=== PATIENT | male | born 1950 | race Caucasian/White ===

== ENCOUNTER 2023-06-03 10:29 | Inpatient (IN) | payer MEDICARE ==
[~2023-06-03] VITALS: Ht 175.3 cm; Wt 78.0 kg
[~2023-06-03 10:29] MED LIST: AMLO25TA PO; FINA-48 PO; FLOM0.4C39 PO; PRED5PAK PO; ROSU10TA6 PO; VENTAER INH
[2023-06-03] MEDS ORDERED: LR 1,000 ML IV SCH (11:20)
[2023-06-03] MEDS ORDERED: ONDANSETRON 4MG 2ML VIAL IV PRN (12:45)
[2023-06-03] MEDS: ceFAZolin SOD 2 GM in IV 1 EA IV ONE (13:00)
[2023-06-03] MEDS ORDERED: LIDOCAINE 2% 100MG/5ML SDV (FOR ANES.) As Ordered ONE (13:03)
[2023-06-03] MEDS ORDERED: HYDROmorphone HCL 2MG/ML 1ML VIAL As Ordered ONE (13:03)
[2023-06-03] MEDS ORDERED: dexmedeTOMIDine (4MCG/ML)200MCG/50ML BTL (PRECEDEX) As Ordered ONE (13:03)
[2023-06-03] MEDS ORDERED: SUGAMMADEX SODIUM 500 MG/5 ML VIAL (BRIDION) As Ordered ONE (13:03)
[2023-06-03] MEDS ORDERED: ROCURONIUM BROMIDE 50MG/5ML VIAL As Ordered ONE (13:03)
[2023-06-03] MEDS ORDERED: ONDANSETRON 4MG 2ML VIAL As Ordered ONE (13:03)
[2023-06-03] MEDS ORDERED: MIDAZOLAM INJ 2MG/2ML VIAL As Ordered ONE (13:03)
[2023-06-03] MEDS ORDERED: fentaNYL 250 MCG/5 ML INJECTION As Ordered ONE (13:03)
[2023-06-03] MEDS ORDERED: ACETAMINOPHEN 1000MG 100ML IV BAG As Ordered ONE (13:03)
[2023-06-03] MEDS ORDERED: propofoL 200 MG/20 ML VIAL As Ordered ONE (13:03)
[2023-06-03] MEDS ORDERED: METOCLOPRAMIDE INJ 10MG/2ML VIAL As Ordered ONE (13:03)
[2023-06-03] MEDS ORDERED: ePHEDrine SULFATE 25 MG/5 ML(5MG/ML) SYRINGE As Ordered ONE (13:10)
[2023-06-03] MEDS ORDERED: ALBUTEROL 6.7GM INHALER **FOR ANES. CART/OMNICELL ONLY As Ordered ONE (13:18)
[2023-06-03] MEDS: FILTER 1.2 MICRON (ADULT TPN/MANNITOL/REMICADE) XX ONE (13:56)
[2023-06-03] MEDS: MANNITOL 25% 12.5GM 50ML VIAL As Ordered ONE (13:56)
[2023-06-03] MEDS: LIDOCAINE 1% SDV 30ML VIAL As Ordered ONE (14:54)
[2023-06-03] MEDS ORDERED: DESFLURANE 240 ML INHALANT As Ordered ONE (15:13)
[2023-06-03] MEDS ORDERED: fentaNYL 100 MCG/2 ML INJECTION IV PRN (15:40)
[2023-06-03] MEDS: LR 1,000 ML IV SCH (15:40)
[2023-06-03] MEDS ORDERED: ALBUTEROL 90 MCG/ACT 8GM HFA INHALER INH PRN (15:55)
[2023-06-03] MEDS: oxyCODONE 5MG TAB PO PRN (16:18)
[2023-06-03] MEDS: HYDROMORPHONE HCL 0.5 MG/ 0.5 ML SYRINGE IV PRN (16:19)
[2023-06-03] MEDS: ONDANSETRON 4MG 2ML VIAL IV PRN (16:19)
[2023-06-03 16:39] LABS: HEMATOCRIT 44.3 % (42.0-52.0); HEMOGLOBIN 14.2 g/dl (13.5-17.5); MEAN CORPUSCULAR HEMOGLOBIN 29.2 pg (27.0-33.0); MEAN CORPUSCULAR HGB CONC 32.1 g/dl (32.0-36.5); MEAN CORPUSCULAR VOLUME 91.2 fl (80.0-96.0); PLATELET COUNT, AUTOMATED 234 10^3/uL (150-450); RED BLOOD COUNT 4.86 10^6/uL (4.30-6.10); WHITE BLOOD COUNT 10.6 10^3/uL (4.0-10.0)
[2023-06-03 17:08] LABS: BLOOD UREA NITROGEN 20 MG/DL (9-23); CALCIUM LEVEL 7.8 MG/DL (8.3-10.6); CARBON DIOXIDE LEVEL 26 MMOL/L (20-31); CHLORIDE LEVEL 106 MMOL/L (98-107); CREATININE FOR GFR 0.95 MG/DL (0.70-1.30); GLOMERULAR FILTRATION RATE > 60.0 (>42); GLUCOSE, FASTING 169 MG/DL (74-106); POTASSIUM SERUM 4.4 MMOL/L (3.5-5.1); SODIUM LEVEL 137 MMOL/L (136-145)
[2023-06-03 17:30] VITALS: BP 113/71; TEMP 97.1; O2SAT 95
[2023-06-03 18:00] VITALS: BP 110/66; TEMP 97.3; O2SAT 96
[2023-06-03] MEDS: NS 1,000 ML IV SCH (18:22)
[2023-06-03] MEDS: ACETAMINOPHEN TAB 650MG DOSE (2X325MG) PO PRN (18:46)
[2023-06-03] MEDS: DOCUSATE SODIUM 100MG CAPSULE PO SCH (20:13)
[2023-06-03] MEDS: ceFAZolin SOD 1 GM in D5W MINI-BAG PLUS 50 ML IV SCH (20:13)
[2023-06-03 20:36] VITALS: BP 124/71; TEMP 97.9; O2SAT 95
[2023-06-04 01:33] VITALS: BP 118/70; TEMP 97.2; O2SAT 97
[2023-06-04] MEDS: PERCOCET 5MG/325MG TAB PO PRN ×2 (05:33→11:16)
[2023-06-04 06:05] VITALS: BP 119/71; TEMP 97.9; O2SAT 97
[2023-06-04 07:14] LABS: HEMATOCRIT 40.2 % (42.0-52.0); HEMOGLOBIN 13.3 g/dl (13.5-17.5); MEAN CORPUSCULAR HEMOGLOBIN 29.5 pg (27.0-33.0); MEAN CORPUSCULAR HGB CONC 33.1 g/dl (32.0-36.5); MEAN CORPUSCULAR VOLUME 89.1 fl (80.0-96.0); PLATELET COUNT, AUTOMATED 222 10^3/uL (150-450); RED BLOOD COUNT 4.51 10^6/uL (4.30-6.10); WHITE BLOOD COUNT 8.7 10^3/uL (4.0-10.0)
[2023-06-04 07:34] LABS: BLOOD UREA NITROGEN 16 MG/DL (9-23); CALCIUM LEVEL 7.9 MG/DL (8.3-10.6); CARBON DIOXIDE LEVEL 27 MMOL/L (20-31); CHLORIDE LEVEL 107 MMOL/L (98-107); CREATININE FOR GFR 0.74 MG/DL (0.70-1.30); GLOMERULAR FILTRATION RATE > 60.0 (>42); GLUCOSE, FASTING 154 MG/DL (74-106); POTASSIUM SERUM 4.4 MMOL/L (3.5-5.1); SODIUM LEVEL 138 MMOL/L (136-145)
[2023-06-04] MEDS: TAMSULOSIN 0.4 MG CAP PO SCH (08:11)
[2023-06-04] MEDS: ROSUVASTATIN 10 MG TAB (CRESTOR) PO SCH (08:11)
[2023-06-04] MEDS: FINASTERIDE 5MG TAB PO SCH (08:11)
[2023-06-04 14:00] VITALS: BP 118/61; TEMP 98.2; O2SAT 91
[2023-06-04] MEDS ORDERED: COLA100C5 PO (16:09)
[2023-06-04] MEDS ORDERED: PERCOCET PO (16:09)
[2023-06-04 20:16] VITALS: BP 124/65; TEMP 98.1; O2SAT 91
[2023-06-05 06:11] VITALS: BP 142/72; TEMP 98.1; O2SAT 91
[2023-06-05 06:40] VITALS: O2SAT 90
[2023-06-05 07:13] LABS: HEMATOCRIT 40.3 % (42.0-52.0); HEMOGLOBIN 13.2 g/dl (13.5-17.5); MEAN CORPUSCULAR HEMOGLOBIN 29.5 pg (27.0-33.0); MEAN CORPUSCULAR HGB CONC 32.8 g/dl (32.0-36.5); PLATELET COUNT, AUTOMATED 200 10^3/uL (150-450); RED BLOOD COUNT 4.48 10^6/uL (4.30-6.10)
[2023-06-05 07:56] LABS: BLOOD UREA NITROGEN 19 MG/DL (9-23); CARBON DIOXIDE LEVEL 28 MMOL/L (20-31); CHLORIDE LEVEL 107 MMOL/L (98-107); CREATININE FOR GFR 0.77 MG/DL (0.70-1.30); GLOMERULAR FILTRATION RATE > 60.0 (>42); GLUCOSE, FASTING 133 MG/DL (74-106); POTASSIUM SERUM 4.4 MMOL/L (3.5-5.1); SODIUM LEVEL 139 MMOL/L (136-145)
[2023-06-05 08:44] VITALS: BP 142/72
== END 2023-06-05 11:35 | disposition home or self-care (01) | DRG 658 ==
LOC: M OR 10:29 → M MS5PR 17:15
PROVIDERS: ADMIT Urology; ATTEND Urology
PROC: 8E0W4CZ Robotic Assisted Procedure of Trunk Region, Percutaneous Endoscopic Approach (ICD-10-PCS; 2023-06-03)
PROC: 0TB04ZZ Excision of Right Kidney, Percutaneous Endoscopic Approach (ICD-10-PCS; principal; 2023-06-03 12:10)
DX: C64.1 Malignant neoplasm of right kidney, except renal pelvis (principal); J44.9 Chronic obstructive pulmonary disease, unspecified; E78.5 Hyperlipidemia, unspecified; Z79.899 Other long term (current) drug therapy; Z87.891 Personal history of nicotine dependence